=== PATIENT | male | born 1940 | race Caucasian/White ===

== ENCOUNTER 2021-05-01 14:37 | Emergency (ER) | payer OTHER, MEDICARE ==
[~2021-05-01] VITALS: Ht 172.7 cm; Wt 77.1 kg
[2021-05-01] MEDS ORDERED: ALLOPURINOL 10100 M1 PO (14:45)
[2021-05-01] MEDS ORDERED: NORVASC10 MG PO (14:46)
[2021-05-01] MEDS ORDERED: LISINOPRIL20 MG PO (14:46)
[2021-05-01] MEDS ORDERED: ELIQUIS2.5 MG PO (14:46)
[2021-05-01] MEDS ORDERED: FLOMAX0.4 MG PO (14:46)
[2021-05-01] MEDS ORDERED: ZOCOR 10 MG TAB10 MG PO (14:46)
[2021-05-01] MEDS ORDERED: INTUNIV2 MG PO (14:47)
[2021-05-01] MEDS ORDERED: ATENOLOL 25 MG25 M1 PO (14:47)
[2021-05-01] MEDS ORDERED: CHLORTHALIDONE25 MG PO (14:47)
[2021-05-01] MEDS ORDERED: JANUVIA50 MG PO (14:48)
[2021-05-01] MEDS ORDERED: AMARYL2 M1 PO (14:48)
[2021-05-01 16:20] LABS: URINE BILIRUBIN NEGATIVE (Negative); URINE BLOOD 2+ (Negative); URINE CLARITY CLEAR; URINE COLOR YELLOW; URINE GLUCOSE-RANDOM* NEGATIVE (Negative); URINE KETONES NEGATIVE (Negative); URINE LEUKOCYTES-REFLEX TRACE (Negative); URINE NITRITE-REFLEX NEGATIVE (Negative); URINE PROTEIN (DIPSTICK) NEGATIVE (Negative); URINE UROBILINOGEN 0.2 E.U./dl (0.2-1.0)
[2021-05-01 16:43] LABS: BACTERIA-REFLEX 1-9 Few /HPF (None Seen); CASTS None Seen /LPF (None Seen); CRYSTALS None Seen /LPF (None Seen); URINE RBC 3-10 Few /HPF (NONE SEEN); URINE WBC-REFLEX 0-5 Rare /HPF (0-5)
[2021-05-01 17:04] VITALS: BP 129/78
[2021-05-01 17:21] LABS: SQUAMOUS 4-10 Moderate /LPF (0-3)
== END 2021-05-01 17:04 | disposition home or self-care (01) ==
LOC: ER 14:37
PROVIDERS: Physician Assistant
DX: R33.9 Retention of urine, unspecified (principal); I10 Essential (primary) hypertension; E11.9 Type 2 diabetes mellitus without complications; Z79.891 Long term (current) use of opiate analgesic; Z79.1 Long term (current) use of non-steroidal anti-inflammatories (NSAID); Z79.899 Other long term (current) drug therapy